=== PATIENT | male | born 1995 | race Caucasian/White ===

== ENCOUNTER 2019-10-16 01:53 | Observation (INO) ==
[2019-10-16] MEDS ORDERED: ONDANSETRON INJ 2 MG/ML 2 ML VIAL IV STA (02:26)
[2019-10-16] MEDS ORDERED: MoRPHine SULFATE 4 MG/ML 1 ML CARP\\VIAL IV PRN ×2 (02:26→07:38)
[2019-10-16] MEDS ORDERED: SODIUM CHLORIDE 0.9% 1000ML 1,000 ML IV SCH (02:30)
[2019-10-16 02:38] LABS: Basophils # (auto) 0.03 K/uL (0-0.2); Basophils % (auto) 0.2 %; Eosinophils # (auto) 0.25 K/uL (0-0.5); Eosinophils % (auto) 1.5 %; Hematocrit (blood only) 48.5 % (42-52); Hemoglobin 17.1 g/dL (14.0-18.0); Immature Granulocytes # (auto) 0.06 K/uL (0.00-0.02); Immature Granulocytes % (auto) 0.4 %; Lymphocytes # (auto) 1.81 K/uL (1.2-3.4); Mean Corpuscular Hemoglobin 31.8 pg (25-34); Mean Corpuscular Hgb Conc 35.3 g/dL (32-36); Mean Corpuscular Volume 90.3 fL (80-100); Mean Platelet Volume 10.3 fL (7.4-10.4); Monocytes # (auto) 1.18 K/uL (0.11-0.59); Monocytes % (auto) 7.2 %; Neutrophils # (auto) 13.06 K/uL (1.4-6.5); Neutrophils % (auto) 79.7 %; Platelet Count 387 K/uL (130-400); RDW Standard Deviation 39.1 fL (36.4-46.3); Red Blood Count 5.37 M/uL (4.7-6.1); White Blood Count 16.39 K/uL (4.8-10.8)
[2019-10-16 02:39] LABS: Appearance Urine Clear (Clear); Bilirubin Urine Negative (Negative); Blood Urine Negative (Negative); Color Urine Yellow; Glucose Urine UA Negative (Negative); Ketones Urine Negative (Negative); Leukocyte Esterase Urine Negative (Negative); Nitrite Urine Negative (Negative); Protein Urine Negative (Negative); Specific Gravity Urine 1.006 (1.000-1.030); Urobilinogen Urine Negative (Negative)
[2019-10-16 02:58] LABS: Albumin Level 4.3 gm/dl (3.4-5.0); BUN Creatinine Ratio 8.4 (10-20); Calcium 9.1 mg/dl (8.5-10.1); Creatinine Clr Calc Pharmacy 96.1 ml/min; Est GFR (African American) 88.7; Est GFR (Non-African American) 76.5; Potassium 3.6 mmol/L (3.5-5.1)
[2019-10-16 03:01] LABS: Bilirubin,Total 0.7 mg/dl (0.2-1); Globulin 4.3 gm/dl (2.5-4.0); Total Protein 8.6 gm/dl (6.4-8.2)
--- NOTE | 2019-10-16 03:49 | Emergency Department Note ---
History of Present Illness General Chief complaint: Flank Pain Stated complaint: SIDE/ABD/BACK PAIN, FEELS SICK Time Seen by Provider: 10/16/19 02:13 History of Present Illness Maximum Pain Intensity: 4 This is a 24-year-old male presenting to the emergency department with complaint of right-sided abdominal pain for the past few hours. The patient was drinking casually this evening with friends, and states that he did try a new beer. After drinking this, he felt very nauseated, and did have a small amount of emesis. The patient has a past history of Ulwvj-Ebxokzbnu-Rzxrw that was treated with cardiac ablation. He is otherwise healthy and does not take medication on a regular basis. He does not have a history of abdominal surgery. No fevers or chills. No known exposure to disease or recent travel history. He rates his current discomfort a dull 4/10, that is worse in the right lower quadrant. He does not have any flank pain or difficulty using the bathroom. He does not identify additional aggravating or alleviating factors. 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 Surgical History (Updated 10/16/19 @ 03:48 by Rene Currie PA-C) Status post cryoablation Previously with history of Mobst-Yfdvhuseo-Hqyot Social History Feels Safe at Home: Yes Smoking Status: Never smoker Review of Systems A total of 10 systems reviewed and were otherwise negative Physical Exam Vital Signs Vital Signs - 24 hr 10/16/19 02:00 10/16/19 03:03 10/16/19 04:14 Temperature 37 C Temperature Source Oral Pulse Rate 124 H Pulse Rate [Right Finger] 111 H 106 H Respiratory Rate 18 18 16 Respiratory Effort / Characteristics Non-Labored Respiratory Depth Normal Respiratory Pattern Regular Blood Pressure 153/101 H Blood Pressure [Right Arm] 144/90 H 152/98 H Blood Pressure Mean 118 Blood Pressure Mean [Right Arm] 108 116 Blood Pressure Position [Right Arm] Sitting Sitting Pulse Oximetry 96 94 97 Oxygen Delivery Method Room Air Room Air Room Air Sepsis Recent Fever Within 48 Hours No Sepsis Action Taken by Nursing No Action Required 10/16/19 05:06 10/16/19 05:57 Temperature Temperature Source Pulse Rate Pulse Rate [Right Finger] 110 H 101 H Respiratory Rate 18 16 Respiratory Effort / Characteristics Respiratory Depth Respiratory Pattern Blood Pressure Blood Pressure [Right Arm] 155/103 H 140/97 Blood Pressure Mean Blood Pressure Mean [Right Arm] 120 111 Blood Pressure Position [Right Arm] Sitting Sitting Pulse Oximetry 95 97 Oxygen Delivery Method Room Air Room Air Sepsis Recent Fever Within 48 Hours Sepsis Action Taken by Nursing VITALS: Vitals are noted on the nurse's note and reviewed by myself. Vital signs stable. GENERAL: Well-developed, well-nourished, white male, who is in no acute distress and resting comfortably. Patient is cooperative with the examination. HEAD: Normocephalic atraumatic. HEART: Regular rate and rhythm without murmurs gallops or rubs. LUNGS: Clear to auscultation bilaterally without wheezes, rales or rhonchi. No retractions or accessory muscle use. ABDOMEN: Positive normal bowel sounds x 4. Soft with positive right lower quadrant tenderness. No rebound or guarding. No CVA tenderness. MUSCULOSKELETAL: No muscle atrophy, erythema, or edema noted. Full range of motion in all extremities. NEURO: Patient was alert and oriented to person place and time. CN II through XII grossly intact. SKIN: The skin was without rashes, erythema, edema, or bruising. Capillary refill less than 2 seconds. Course Administered Medications Ioversol (Optiray 320 100ml) 93 ml IV ONCE PRN PRN Reason: Interaction Checking Stop: 10/20/19 04:15 Last Admin: 10/16/19 04:16 Dose: 1 ml Documented by: [id number] Morphine Sulfate (Morphine Sulfate) 4 mg IV Q1H PRN PRN Reason: Pain Stop: 10/30/19 02:25 Last Admin: 10/16/19 02:36 Dose: 4 mg Documented by: [id number] Discontinued Medications Sodium Chloride (Nss 1000ml) 1,000 mls @ 999 mls/hr IV .Q1H1M SANDRA Stop: 10/16/19 03:30 Last Infusion: 10/16/19 03:36 Dose: 0 mls/hr Documented by: [id number] Admin: 10/16/19 02:40 Dose: 999 mls/hr Documented by: [id number] Ondansetron HCl (Zofran) 4 mg IV NOW STA Stop: 10/16/19 02:27 Last Admin: 10/16/19 02:37 Dose: 4 mg Documented by: [id number] Medical Decision Making Differential Diagnosis Differential diagnosis: Etiologies such as biliary colic, cholecystitis, hepatitis, pancreatitis, cardiac disease, pancreatitis, gastritis, peptic ulcer disease, appendicitis, cystitis, diverticulitis, mesenteric ischemia, inflammatory bowel disease, il eus, bowel obstruction, testicular/adnexal torsion, aortic pathology, shingles, as well as others were considered Laboratory Data Result diagrams: 10/16/19 02:13 10/16/19 02:13 Lab Results 10/16/19 10/16/19 10/16/19 Range/Units 02:13 02:13 02:13 WBC 16.39 H (4.8-10.8) K/uL RBC 5.37 (4.7-6.1) M/uL Hgb 17.1 (14.0-18.0) g/dL Hct 48.5 (42-52) % MCV 90.3 (80-100) fL MCH 31.8 (25-34) pg MCHC 35.3 (32-36) g/dL RDW Std Deviation 39.1 (36.4-46.3) fL RDW Coeff of Iliana 12.0 (11.5-14.5) % Plt Count 387 (130-400) K/uL MPV 10.3 (7.4-10.4) fL Immature Gran % (Auto) 0.4 % Neut % (Auto) 79.7 % Lymph % (Auto) 11.0 % [place] % (Auto) 7.2 % Eos % (Auto) 1.5 % Baso % (Auto) 0.2 % Immature Gran # (Auto) 0.06 H (0.00-0.02) K/uL Neut # (Auto) 13.06 H (1.4-6.5) K/uL Lymph # (Auto) 1.81 (1.2-3.4) K/uL [place] # (Auto) 1.18 H (0.11-0.59) K/uL Eos # (Auto) 0.25 (0-0.5) K/uL Baso # (Auto) 0.03 (0-0.2) K/uL Sodium 140 (136-145) mmol/L Potassium 3.6 (3.5-5.1) mmol/L Chloride 104 (98-107) mmol/L Carbon Dioxide 28 (21-32) mmol/L Anion Gap 8.0 (3-11) BUN 11 (7-18) mg/dl Creatinine 1.29 (0.6-1.4) mg/dl Est Cr Clr Drug Dosing 96.1 ml/min Est GFR ( Amer) 88.7 Est GFR (Non-Af Amer) 76.5 BUN/Creatinine Ratio 8.4 L (10-20) Glucose 143 H (70-99) mg/dl Calcium 9.1 (8.5-10.1) mg/dl Total Bilirubin 0.7 (0.2-1) mg/dl AST 20 (15-37) U/L ALT 42 (12-78) U/L Alkaline Phosphatase 106 (45-117) U/L Total Protein 8.6 H (6.4-8.2) gm/dl Albumin 4.3 (3.4-5.0) gm/dl Globulin 4.3 H (2.5-4.0) gm/dl Albumin/Globulin Ratio 1.0 (0.9-2) Lipase 73 (73-393) U/L Urine Color Yellow Urine Appearance Clear (Clear) Urine pH 6.0 (4.5-7.5) Ur Specific [place] 1.006 (1.000-1.030) Urine Protein Negative (Negative) Urine Glucose (UA) Negative (Negative) Urine Ketones Negative (Negative) Urine Blood Negative (Negative) Urine Nitrite Negative (Negative) Urine Bilirubin Negative (Negative) Urine Urobilinogen Negative (Negative) Ur Leukocyte Esterase Negative (Negative) Imaging Data Radiologist's Impression: Preliminary Findings Only See Final Report For Complete Findings CT ABDOMEN & PELVIS With Contrast: Acute uncomplicated appendicitis. The appendix is distended up to 1.1 cm. Trace periappendiceal fat stranding. No perforation or fluid collection. MDM Narrative Physical exam and history were performed. Nursing notes, EMR, and Medication List were personally reviewed. Patient appears to have abdominal pain for the past several hours. His pain was primarily right-sided at first, but on exam is distinctly in the right lower quadrant. IV access was established and labs were obtained. The patient was hydrated with normal saline and given IV morphine and IV Zofran for comfort. Because of his symptoms CT scan with IV and oral contrast was performed. The patient's blood work is as above and was reviewed. He does have an elevated white blood cell count of 16,000 with associated shift. He is not with significant anemia or gross electrolyte imbalance. Lipase and transaminases are not diagnostic. Urine is without evidence of infection. CT scan was reviewed by myself and radiology and is consistent with acute appendicitis without perforation or fluid collection. The case was discussed with the on-call surgeon, Dr. Dubois, who agreed to evaluate the patient for surgical intervention. Please see Dr. Dubois's dictation for further patient course, plan, and disposition. The chart was completed utilizing [employer] Speech Voice Recognition Software. Grammatical errors, random word insertions, pronoun errors, and incomplete sen tences are an occasional consequence of this system due to software limitations, ambient noise, and hardware issues. Any formal questions or concerns about the content, text, or information contained within the body of this dictation should be directly addressed to the provider for clarification. . Impression & Plan Acute appendicitis, RLQ abdominal pain Discharge Plan Visit Data Chief Complaint: Flank Pain Stated Complaint: SIDE/ABD/BACK PAIN, FEELS SICK ED Provider: Robert Ken ED Midlevel Provider: Rene Currie Discharge Problem: Acute appendicitis, RLQ abdominal pain Forms Stand Alone Forms: Results [employer] Prescriptions Prescriptions: No Action No Known Home Medications RF: 0 Referrals Referrals: Varun Dickey [Primary Care Provider] - Discharge Problem: Acute appendicitis Qualifiers: Acute appendicitis type: unspecified acute appendicitis type Qualified Code(s): K35.80 - Unspecified acute appendicitis
[2019-10-16] MEDS ORDERED: IOVERSOL 100ml IV PRN (04:16)
[2019-10-16] MEDS ORDERED: MoRPHine SULFATE 2 MG/ML CARP IV PRN (07:38)
[2019-10-16] MEDS ORDERED: OXYCODONE/ACETAMINOPHEN 5mg/325mg TAB PO PRN ×2 (07:38)
[2019-10-16] MEDS ORDERED: KETOROLAC TROMETHAMINE 15 MG/ML VIAL IV PRN (07:38)
[2019-10-16] MEDS ORDERED: ONDANSETRON INJ 2 MG/ML 2 ML VIAL IV PRN ×2 (07:38→11:55)
[2019-10-16] MEDS ORDERED: ACETAMINOPHEN 325 MG TAB PO PRN (07:38)
[2019-10-16] MEDS: MoRPHine SULFATE 2 MG/ML CARP IV PRN ×2 (08:04→13:09)
--- NOTE | 2019-10-16 08:56 | CT Scan Report ---
ABDOMEN AND PELVIS CT WITH IV AND ORAL CONTRAST CT DOSE: 904.89 mGy.cm HISTORY: Acute right lower quadrant abdominal pain with nausea and vomiting RLQ abd pain. N/V. TECHNIQUE: Multiaxial CT images of the abdomen and pelvis were performed following the IV administrat ion of 93 cc of Optiray 320 and oral contrast. A dose lowering technique was utilized adhering to th e principles of ALARA. COMPARISON STUDY: None. FINDINGS: Clear lung bases. There is no pneumatosis or pneumoperitoneum. The imaged inferior cardiac chambers a ppear unremarkable. Liver, gallbladder, spleen, pancreas and adrenal glands are unremarkable. Kidneys , ureters and urinary bladder are unremarkable. Aorta and IVC are within normal limits. There is no a denopathy. No bowel obstruction. Fluid-filled dilated appendix measures up to 1.0 cm transversely and demonstrat es mucosal hyperemia with wall thickening and mild periappendiceal stranding. No evidence of perforat ion or drainable fluid collection. Soft tissues are unremarkable. The bones appear intact. IMPRESSION: 1. Acute uncomplicated appendicitis. No evidence of perforation or drainable fluid collection. 2. No bowel obstruction or pneumoperitoneum. Electronically signed by: Mark Sy M.D. 10/16/2019 8:55 AM
--- NOTE | 2019-10-16 08:58 | History & Physical Report ---
Date of Service October 16, 2019 Assessment & Plan (1) Acute appendicitis: 24 yr old man with acute appendicitis. Consented for laparoscopic appendectomy - risks of bleeding, infection, conversion to open, postop ileus/ abscess, negative appy all discussed. Option of antibiotics alone reviewed with risk of recurrence, perforation. Prefers to have appendix removed. For OR today. Present on Admission?: Yes History of Present Illness Chief Complaint: abdominal pain Primary Care Provider: Varun Dickey 24 yr old man with history of sgre-wxfeqeaxh-kwkio syndrome s/p cardiac ablation presents with abdominal pain of 1 day duration. Crampy, sharp, stabbing, located on right mid abdomen radiating at times to lower back, moderate to severe in intensity, associated with dry heaves, felt chilled, worse with movement, better if lays still. No similar episodes in past. Came to ER and CT scan showed appendicitis. 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 Surgical History Status post cryoablation Previously with history of Viytj-Khisjsvvs-Xpvyu Social History Preferred Language: Tunisian Communication Ability: Effective Accounting Office Manager Required: No Beliefs That Will Affect Care: None Current Living Situation: Spouse Other Information That Helps Us Care for You: Yes Feels Safe at Home: Yes Safety Concerns: Feels Safe At This Time Smoking Status: Never smoker Do You Dip or Chew Tobacco: No ; Second Hand Exposure: No ; Tobacco Cessation Education Requested by Patient: No Hx Alcohol Use: Yes Alcohol type: beer Hx Substance Use: No Review of Systems Review of Systems: All systems reviewed & are unremarkable except as noted in HPI & below gets occasional palpitations still, told he has a mildly leaky heart valve after cryoablations Physical Exam Constitutional: WD/WN, vitals as above Eyes: + anicteric sclerae Neck: normal visual inspection Respiratory: normal respiratory effort, lungs clear to auscultation Cardiovascular: RRR, no murmur, no edema Gastrointestinal (Abdomen): Inspection/Auscultation: normal bowel sounds Percussion/Palpation: + abdomen tender (right mid abdomen) and abdomen soft; no guarding, no hepatomegaly, no splenomegaly, no hernia and no abdominal mass Musculoskeletal: no cyanosis or clubbing, extremities motor strength 5/5 Neurologic: moves all extremities; no focal motor deficits Psychiatric: A+Ox3, euthymic affect Results & Data Vital Signs (Past 12 Hours) Vital Signs Temp Pulse Pulse Resp BP BP Pulse Ox 10/16/19 07:38 36.7 C 90 16 152/90 H 97 10/16/19 07:11 99 H 18 152/83 H 98 10/16/19 05:57 101 H 16 140/97 97 10/16/19 05:06 110 H 18 155/103 H 95 10/16/19 04:14 106 H 16 152/98 H 97 10/16/19 03:03 111 H 18 144/90 H 94 10/16/19 02:00 37 C 124 H 18 153/101 H [address] 16.[address] scan findings c/w acute appendicitis. Code Status & VTE Plan VTE Prophylaxis Plan VTE Prophylaxis will be ordered: Yes (1) Acute appendicitis Acute appendicitis type: unspecified acute appendicitis type Qualified Code(s): K35.80 - Unspecified acute appendicitis
--- NOTE | 2019-10-16 09:03 | Anesthesiology Consultation ---
Date of Service October 16, 2019 Assessment & Plan Chart Review Chart Review: Acceptable Risk for Surgery and Patient NOT seen in Pre Admission Testing Consults Requested none ASA [id number] Proposed Anesthesia Anesthesia Type: General History Surgery Operation Date: 10/16/19 10:00 Proposed Procedures p Laparoscopic Appendectomy - Sally Dubois MD Height/Weight Height: 6 ft 5 in Weight: 86 kg Allergies Allergy/AdvReac Type Severity Reaction Status Date / Time No Known Allergies Allergy Unverified 10/16/19 02:46 Medications Home Medications Medication Instructions Recorded Confirmed Last Taken No Known Home Medications 10/16/19 10/16/19 Unknown Active Medications Generic Name Dose Route Start Last Admin Trade Name Freq PRN Reason Stop Dose Admin Ioversol 93 ml 10/16/19 04:16 10/16/19 04:16 Optiray 320 100ml IV 10/20/19 04:15 1 ml ONCE PRN Administration Interaction Checking Morphine Sulfate 2 mg 10/16/19 07:38 10/16/19 08:04 Morphine Sulfate IV 10/30/19 07:37 2 mg Q3H PRN Administration MODERATE Pain (Scale 4,5,6) NPO Date Last Intake of Fluids: 10/16/19 Time Last Intake of Fluids: 04:30 Last Intake of Fluids Comment: CT oral contrast Date Last Intake of Solids: 10/15/19 Time Last Intake of Solids: 22:00 Past Medical History Medical History History of Vxail-Wdortwbaz-Zloxs (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 Exercise / Class Metabolic Activity II 4-5 Yardwork/Stairs/Walk up hill Past Surgical History Surgical History Status post cryoablation Previously with history of Vbang-Xxkkpdnjd-Wrvtd Past Anesthesia History No Hx of Anesthesia Complications and No Family Hx of Anesthesia Complications History of PONV No Hx of PONV and No Hx of Motion Sickness Social History Smoking Status: Never smoker Do You Dip or Chew Tobacco: No Hx Alcohol Use: Yes Alcohol type: beer alcohol intake frequency: a few times a month Hx Substance Use: No Physical Exam Vital Signs Last Vital Signs Temp 36.7 C 10/16/19 07:38 Pulse 90 10/16/19 07:38 Resp 16 10/16/19 07:38 BP 152/90 H 10/16/19 07:38 Pulse Ox 97 10/16/19 07:38 Testing Laboratory Results 10/16/19 02:13 10/16/19 02:13 Urine Color Yellow 10/16/19 02:13 Urine Appearance Clear (Clear) 10/16/19 02:13 Urine pH 6.0 (4.5-7.5) 10/16/19 02:13 Ur Specific [place] 1.006 (1.000-1.030) 10/16/19 02:13 Urine Protein Negative (Negative) 10/16/19 02:13 Urine Glucose (UA) Negative (Negative) 10/16/19 02:13 Urine Ketones Negative (Negative) 10/16/19 02:13 Urine Nitrite Negative (Negative) 10/16/19 02:13 Ur Leukocyte Esterase Negative (Negative) 10/16/19 02:13 Electrocardiogram Date: 10/16/19 Findings: + RBBB and + ST @ (at 109;)
[2019-10-16] MEDS ORDERED: LIDOCAINE HCL 2% 2 ML VIAL/AMP(20MG/ML) INFIL ONE (09:30)
[2019-10-16] MEDS ORDERED: PROPOFOL IV EMULSION 10 MG/ML 20 ML VIAL IV ONE (09:30)
[2019-10-16] MEDS ORDERED: ONDANSETRON INJ 2 MG/ML 2 ML VIAL ONE (09:30)
[2019-10-16] MEDS ORDERED: fentaNYL citrate 100 MCG/2 ML VIAL ONE ×2 (09:31→11:10)
[2019-10-16] MEDS ORDERED: MIDAZOLAM HCL 1 MG/ML 2ML VIAL ONE (09:31)
[2019-10-16] MEDS ORDERED: ACETAMINOPHEN 1000 MG/100 ML IV IV ONE (10:22)
[2019-10-16] MEDS ORDERED: BUPIVACAINE 0.5 % 5 MG/1 ML MPF 30ML VIAL ONE (10:27)
[2019-10-16] MEDS ORDERED: NEOSTIGMINE METHYLSULFATE 5 MG/5 ML SYR ONE (11:29)
[2019-10-16] MEDS ORDERED: GLYCOPYRROLATE 0.2 MG/ML VIAL ONE (11:29)
--- NOTE | 2019-10-16 11:42 | Operative Report ---
Post Operative Report Pre & Post Diagnosis Operation Date: 10/16/19 10:00 Pre-Op Diagnosis: ACUTE APPENDICITIS Post-Op Diagnosis: ACUTE APPENDICITIS I identified the patient and participated in the time-out.: Yes Procedure Operation Date: 10/16/19 10:00 Actual Procedures p Laparoscopic Appendectomy(Not Applicable) - Sally Dubois MD Surgeon Sally Dubois MD [place] Machine Operator Helper none Estimated Blood Loss 5 Findings Consistent with Post-Op Diagnosis Specimens appendix Description of Procedure see dictated operative report I attest to the content of the Intraoperative Record and any orders documented therein. Any exceptions are noted below.
[2019-10-16] MEDS ORDERED: LABETALOL HCL IV 5 MG/ML 20ML IV PRN (11:55)
[2019-10-16] MEDS ORDERED: ePHEDrine sulfate 50 MG/ML AMP IV PRN (11:55)
[2019-10-16] MEDS ORDERED: NALOXONE HCL 0.4 MG/1 ML VIAL/CARP IV PRN (11:55)
[2019-10-16] MEDS ORDERED: ATROPINE SULFATE 0.1 MG/ML 10ML SYR IV PRN (11:55)
[2019-10-16] MEDS ORDERED: HYDROmorphone INJ 1 MG/ML SYRINGE IV PRN (11:55)
[2019-10-16] MEDS ORDERED: fentaNYL citrate 100 MCG/2 ML VIAL IV PRN (11:55)
[2019-10-16] MEDS ORDERED: FLUMAZENIL 0.1 MG/1 ML 10 ML VIAL IV PRN (11:55)
[2019-10-16] MEDS ORDERED: PROMETHAZINE HCL 12.5 MG in SODIUM CHLORIDE 0.9% 50 ML IV PRN (11:55)
--- NOTE | 2019-10-16 12:56 | Anesthesiology Progress Note ---
Date of Service October 16, 2019 Anesthesia Post Procedure Vital Signs Vital Signs: Temp Pulse Pulse Pulse Resp BP BP 10/16/19 12:45 36.5 C 87 20 135/86 10/16/19 12:35 36.5 C 82 20 134/81 10/16/19 12:25 36.5 C 88 20 135/85 10/16/19 12:15 92 H 22 136/75 10/16/19 12:05 72 23 133/33 L 10/16/19 11:59 36.5 C 72 15 127/77 10/16/19 07:38 36.7 C 90 16 152/90 H 10/16/19 07:11 99 H 18 152/83 H 10/16/19 05:57 101 H 16 140/97 10/16/19 05:06 110 H 18 155/103 H 10/16/19 04:14 106 H 16 152/98 H 10/16/19 03:03 111 H 18 144/90 H 10/16/19 02:00 37 C 124 H 18 153/101 H Pulse Ox 10/16/19 12:45 94 10/16/19 12:35 94 10/16/19 12:25 94 10/16/19 12:15 99 10/16/19 12:05 98 10/16/19 11:59 99 10/16/19 07:38 97 10/16/19 07:11 98 10/16/19 05:57 97 10/16/19 05:06 95 10/16/19 04:14 97 10/16/19 03:03 94 10/16/19 02:00 96 Pain Intensity Lower Abdomen: Pain Intensity: 5 Transfer of Care Handoff Completed per policy Notes Mental Status: alert / awake / arousable Patient Amnestic to Procedure: Yes Nausea / Vomiting: adequately controlled Pain: adequately controlled Airway Patency, RR, SpO2: stable & adequate BP & HR: stable & adequate Hydration State: stable & adequate Anesthetic Complications: no major complications apparent
--- NOTE | 2019-10-16 13:22 | Operative Report ---
DATE OF OPERATION: 10/16/2019 PREOPERATIVE DIAGNOSIS: Acute appendicitis. POSTOPERATIVE DIAGNOSIS: Acute appendicitis. OPERATIVE PROCEDURE: Laparoscopic appendectomy. SURGEON: Sally Dubois MD. ANESTHESIA: General endotracheal anesthesia, ASA 2E. SPECIMENS: Appendix. DRAINS: None. COMPLICATIONS: None. OPERATIVE FINDINGS: Acute appendicitis. INDICATIONS: Mr. Álvarez is a 24-year-old man who presented with acute appendicitis. He was consented for laparoscopic appendectomy. DESCRIPTION OF PROCEDURE: The patient received Mefoxin preoperatively. After the induction of general endotracheal anesthesia, he had placement of Castro catheter. His abdomen was then sterilely prepped and draped. He was positioned with his left arm tucked. A supraumbilical incision was made after he had been placed in Trendelenburg. A Veress needle was placed into the peritoneal cavity. This was tested with the saline drop test. Pneumoperitoneum was established with an initial pressure of 2 mmHg being taken up to 15 mmHg. The 12 mm trocar was placed under direct vision using the camera through the trocar site. Two additional 5s were then placed, 1 in the left lower quadrant, and 1 in the midline pubic area. The appendix was easily visualized. There were inflammatory changes near the tip. The appendix was grasped and a window created on the base of the appendix on the cecum. This was divided off the cecum with a firing of the CAROL purple load stapler. The appendiceal mesentery was taken with another firing of the CAROL rondon load stapler. The appendix was placed in an Endobag and removed through the umbilical incision. Hemostasis was noted to be present. The abdomen was irrigated and suctioned clear. The trocars were removed. 30 mL of 0.5% Marcaine was used for local anesthesia. The fascia of the umbilical incision was closed with 0 Vicryl stitches placed anteriorly. The skin of all 3 incisions closed with running subcuticular 4-0 Vicryl sutures. Steri-Strip sterile dressings were applied. He was awakened and taken to recovery in stable condition. I attest to the content of the Intraoperative Record and any orders documented therein. Any exception s are noted below.
--- NOTE | 2019-10-16 13:47 | Discharge Summary ---
Date of Service October 16, 2019 Admission HPI Per Admitting Provider 24 yr old man with history of phpy-ojtzxdgpo-cucgv syndrome s/p cardiac ablation presents with abdominal pain of 1 day duration. Crampy, sharp, stabbing, located on right mid abdomen radiating at times to lower back, moderate to severe in intensity, associated with dry heaves, felt chilled, worse with movement, better if lays still. No similar episodes in past. Came to ER and CT scan showed appendicitis. Admission Exam (Per Admitting) Constitutional WD/WN, vitals as above Eyes + anicteric sclerae Neck normal visual inspection Respiratory normal respiratory effort, lungs clear to auscultation Cardiovascular RRR, no murmur, no edema Gastrointestinal (Abdomen) Inspection/Auscultation: normal bowel sounds Percussion/Palpation: + abdomen tender (right mid abdomen) and abdomen soft; no guarding, no hepatomegaly, no splenomegaly, no hernia and no abdominal mass Musculoskeletal no cyanosis or clubbing, extremities motor strength 5/5 Neurologic moves all extremities; no focal motor deficits Psychiatric A+Ox3, euthymic affect Discharge Data Consultations 10/16/19 05:33 Consult General Surgery Stat Procedures Performed Operation Date: 10/16/19 10:00 Actual Procedures p Laparoscopic Appendectomy(Not Applicable) - Sally Dubois MD Hospital Course (1) Acute appendicitis: 24 yr old man with acute appendicitis. Consented for laparoscopic appendectomy - risks of bleeding, infection, conversion to open, postop ileus/ abscess, negative appy all discussed. Option of antibiotics alone reviewed with risk of recurrence, perforation. Prefers to have appendix removed. Lap appendectomy was uncomplicated. Discharged postoperatively when he met criteiria.
== END 2019-10-17 09:49 | disposition home or self-care (01) ==
LOC: 3N 01:53 → ED 01:53 → 3N 07:22
DX: K35.80 Unspecified acute appendicitis